=== PATIENT | female | born 2000 | race Caucasian/White ===

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

== ENCOUNTER 2021-01-14 21:13 | Emergency (ER) | payer OTHER ==
[~2021-01-14] VITALS: Ht 157.4 cm; Wt 77.1 kg
[2021-01-14] MEDS ORDERED: PREDNISONE20 M1 PO (22:51)
== END 2021-01-14 23:31 | disposition home or self-care (01) ==
LOC: ED 21:13
DX: O99.512 Diseases of the respiratory system complicating pregnancy, second trimester (principal); J45.901 Unspecified asthma with (acute) exacerbation; Z3A.16 16 weeks gestation of pregnancy

== ENCOUNTER 2021-01-20 21:38 | Emergency (ER) | payer OTHER | END 2021-01-21 01:03 | disposition home or self-care (01) | LOC: ED 21:38 | DX: O99.512 Diseases of the respiratory system complicating pregnancy, second trimester (principal); Z3A.17 17 weeks gestation of pregnancy ==

== ENCOUNTER 2021-01-23 00:36 | Emergency (ER) | payer OTHER ==
[~2021-01-23] VITALS: Ht 149.8 cm; Wt 64.9 kg
[2021-01-23 01:25] LABS: BASO # 0.1 10*3/uL (0.0-0.1); BASO % 0.3 % (0.0-1.0); EOS # 0.9 10*3/uL (0.0-0.4); EOS % 4.9 % (1.0-4.0); HEMATOCRIT 34.9 % (37.0-47.0); LYMPH # 2.6 10*3/uL (1.3-4.4); LYMPH % 14.9 % (27.0-41.0); MEAN CELL VOLUME 81.4 fl (81.0-99.0); MEAN CORPUSCULAR HGB 28.2 pg (27.0-31.0); MEAN CORPUSCULAR HGB CONC 34.7 g/dl (33.0-37.0); MEAN PLATELET VOLUME 10.9 fl (9.6-12.3); MONO # 1.1 10*3/uL (0.1-1.0); MONO % 6.3 % (3.0-9.0); NEUT # 12.6 10*3/uL (2.3-7.9); NEUT % 72.7 % (47.0-73.0); PLATELET COUNT AUTOMATED 263 10*3/uL (130-400); RED BLOOD COUNT 4.29 10*6/uL (4.10-5.10); RED CELL DISTRI WIDTH 13.2 % (0-14.5); WHITE BLOOD COUNT 17.3 10*3/uL (4.8-10.8)
[2021-01-23 01:41] LABS: ALBUMIN 2.7 gm/dl (3.1-4.5); ALKALINE PHOSPHATASE 59 U/L (45-117); BUN 5 mg/dl (7-24); CHLORIDE 109 mmol/L (98-107); CREATININE 0.54 mg/dL (0.55-1.02); POTASSIUM 3.6 mmol/L (3.5-5.1); SGOT/AST 14 IU/L (3-35); SGPT/ALT 23 U/L (12-78); SODIUM 140 mmol/L (136-145); TOTAL PROTEIN 6.9 gm/dL (6.4-8.2)
== END 2021-01-23 03:50 | disposition home or self-care (01) ==
LOC: ED 00:36
PROVIDERS: Emergency Medicine
DX: J45.901 Unspecified asthma with (acute) exacerbation (principal)

== ENCOUNTER 2021-01-25 05:04 | Emergency (ER) | payer OTHER ==
[~2021-01-25] VITALS: Ht 149.8 cm; Wt 66.7 kg
== END 2021-01-25 20:31 | disposition short-term general hospital (02) ==
LOC: ED 05:04
DX: O99.512 Diseases of the respiratory system complicating pregnancy, second trimester (principal); Z20.822 Contact with and (suspected) exposure to COVID-19; J45.901 Unspecified asthma with (acute) exacerbation; Z3A.17 17 weeks gestation of pregnancy

== ENCOUNTER 2021-02-12 22:18 | Emergency (ER) | payer OTHER ==
[~2021-02-12] VITALS: Ht 149.8 cm; Wt 63.5 kg
[2021-02-13 00:23] LABS: BILIRUBIN Negative (Negative); BLOOD Negative (Negative); CLARITY Cloudy (Clear); COLOR Yellow (Yellow); GLUCOSE Negative (Negative); KETONE Trace (Negative); LEUKO ESTERASE Negative (Negative); NITRITE Negative (Negative); PH 6.5 (4.5-8.0); SPECIFIC GRAVITY 1.025 (1.001-1.030)
[2021-02-13 00:51] LABS: BACTERIA 1+; RBC 16-20 rbc/hpf (0-2)
== END 2021-02-13 00:17 | disposition home or self-care (01) ==
LOC: ED 22:18
PROVIDERS: Internal Medicine
DX: O26.892 Other specified pregnancy related conditions, second trimester (principal); Z3A.20 20 weeks gestation of pregnancy

== ENCOUNTER 2021-02-28 19:45 | Emergency (ER) | payer OTHER ==
[~2021-02-28] VITALS: Ht 157.4 cm
[2021-02-28 20:22] LABS: BASO % 0.2 % (0.0-1.0); EOS # 0.1 10*3/uL (0.0-0.4); EOS % 0.5 % (1.0-4.0); HEMATOCRIT 40.3 % (37.0-47.0); LYMPH % 14.9 % (27.0-41.0); MEAN CORPUSCULAR HGB 28.1 pg (27.0-31.0); MEAN PLATELET VOLUME 10.5 fl (9.6-12.3); MONO # 1.4 10*3/uL (0.1-1.0); MONO % 10.7 % (3.0-9.0); NEUT # 9.5 10*3/uL (2.3-7.9); NEUT % 71.7 % (47.0-73.0); PLATELET COUNT AUTOMATED 241 10*3/uL (130-400); RED BLOOD COUNT 4.74 10*6/uL (4.10-5.10); RED CELL DISTRI WIDTH 13.6 % (0-14.5); WHITE BLOOD COUNT 13.2 10*3/uL (4.8-10.8)
[2021-02-28 20:38] LABS: ALBUMIN 3.1 gm/dl (3.1-4.5); ALKALINE PHOSPHATASE 73 U/L (45-117); BUN 10 mg/dl (7-24); CHLORIDE 104 mmol/L (98-107); CREATININE 0.64 mg/dL (0.55-1.02); LIPASE 71 U/L (73-393); POTASSIUM 3.6 mmol/L (3.5-5.1); SGOT/AST 21 IU/L (3-35); SGPT/ALT 28 U/L (12-78); SODIUM 137 mmol/L (136-145); TOTAL PROTEIN 7.5 gm/dL (6.4-8.2)
[2021-02-28 21:17] LABS: BILIRUBIN 1+ (Negative); BLOOD Negative (Negative); CLARITY Cloudy (Clear); COLOR Dark Yellow (Yellow); GLUCOSE Negative (Negative); KETONE 2+ (Negative); LEUKO ESTERASE Trace (Negative); NITRITE Negative (Negative); PH 5.5 (4.5-8.0); SPECIFIC GRAVITY >= 1.030 (1.001-1.030)
[2021-02-28 21:26] LABS: BACTERIA 2+; CALCIUM OXALATE CRYSTALS 1+; MUCOUS TRACE; RBC 0-2 rbc/hpf (0-2)
[2021-02-28] MEDS ORDERED: CEPHALEXIN500 M1 PO (21:55)
== END 2021-02-28 22:10 | disposition home or self-care (01) ==
LOC: ED 19:45
PROVIDERS: Physician Assistant
DX: O26.892 Other specified pregnancy related conditions, second trimester (principal); Z3A.22 22 weeks gestation of pregnancy

== ENCOUNTER 2021-07-09 22:01 | Emergency (ER) | payer OTHER ==
[~2021-07-09] VITALS: Wt 68.0 kg
[~2021-07-09 22:01] MED LIST changes: +CEPHALEXIN500 M1 PO
[2021-07-09] MEDS ORDERED: SYMB160 INH (22:42)
[2021-07-09] MEDS ORDERED: LORADAMED10 MG PO (22:42)
[2021-07-09 23:24] LABS: BASO # 0.1 10*3/uL (0.0-0.1); BASO % 0.8 % (0.0-1.0); EOS # 1.1 10*3/uL (0.0-0.4); EOS % 8.7 % (1.0-4.0); HEMATOCRIT 37.4 % (37.0-47.0); LYMPH # 2.1 10*3/uL (1.3-4.4); LYMPH % 16.8 % (27.0-41.0); MEAN CELL VOLUME 81.8 fl (81.0-99.0); MEAN CORPUSCULAR HGB 26.5 pg (27.0-31.0); MEAN CORPUSCULAR HGB CONC 32.4 g/dl (33.0-37.0); MEAN PLATELET VOLUME 10.4 fl (9.6-12.3); MONO # 0.8 10*3/uL (0.1-1.0); MONO % 6.5 % (3.0-9.0); NEUT # 8.3 10*3/uL (2.3-7.9); PLATELET COUNT AUTOMATED 367 10*3/uL (130-400); RED BLOOD COUNT 4.57 10*6/uL (4.10-5.10); RED CELL DISTRI WIDTH 14.2 % (0-14.5); WHITE BLOOD COUNT 12.4 10*3/uL (4.8-10.8)
[2021-07-09 23:35] LABS: ALKALINE PHOSPHATASE 113 U/L (45-117); BUN 11 mg/dl (7-24); CHLORIDE 113 mmol/L (98-107); CREATININE 0.79 mg/dL (0.55-1.02); SGOT/AST 11 IU/L (3-35); SGPT/ALT 27 U/L (12-78); SODIUM 142 mmol/L (136-145); TOTAL PROTEIN 7.4 gm/dL (6.4-8.2)
[2021-07-10] MEDS ORDERED: Ipratropium Brom3 ML INH (03:11)
== END 2021-07-10 03:16 | disposition home or self-care (01) ==
LOC: ED 22:01
PROVIDERS: Emergency Medicine
DX: J45.909 Unspecified asthma, uncomplicated (principal)

== ENCOUNTER 2021-07-21 11:34 | Inpatient (IN) | payer OTHER ==
[~2021-07-21] VITALS: Ht 149.8 cm; Wt 64.4 kg
[~2021-07-21 11:34] MED LIST changes: +LORADAMED10 MG PO; +SYMB160 INH
[2021-07-21 11:51] VITALS: BP 117/83
[2021-07-21 12:05] LABS: BASO # 0.1 10*3/uL (0.0-0.1); BASO % 0.7 % (0.0-1.0); EOS # 0.9 10*3/uL (0.0-0.4); EOS % 9.8 % (1.0-4.0); HEMATOCRIT 38.7 % (37.0-47.0); LYMPH # 1.3 10*3/uL (1.3-4.4); LYMPH % 14.4 % (27.0-41.0); MEAN CELL VOLUME 81.8 fl (81.0-99.0); MEAN CORPUSCULAR HGB CONC 31.8 g/dl (33.0-37.0); MEAN PLATELET VOLUME 10.1 fl (9.6-12.3); MONO # 0.7 10*3/uL (0.1-1.0); MONO % 7.4 % (3.0-9.0); NEUT # 6.1 10*3/uL (2.3-7.9); NEUT % 67.5 % (47.0-73.0); PLATELET COUNT AUTOMATED 301 10*3/uL (130-400); RED BLOOD COUNT 4.73 10*6/uL (4.10-5.10); RED CELL DISTRI WIDTH 13.8 % (0-14.5)
[2021-07-21 12:18] LABS: ACT PARTIAL THROMBO TIME 31.9 SECONDS (20.0-32.1)
[2021-07-21 12:20] LABS: BUN 7 mg/dl (7-24); CHLORIDE 113 mmol/L (98-107); CREATININE 0.72 mg/dL (0.55-1.02); POTASSIUM 3.7 mmol/L (3.5-5.1); SODIUM 142 mmol/L (136-145)
[2021-07-21 17:44] VITALS: BP 130/76
[2021-07-21 20:00] VITALS: BP 120/76
[2021-07-22] VITALS: BP 122/71
[2021-07-22 06:25] LABS: BASO # 0.1 10*3/uL (0.0-0.1); BASO % 0.6 % (0.0-1.0); EOS # 0.2 10*3/uL (0.0-0.4); EOS % 1.8 % (1.0-4.0); HEMATOCRIT 36.8 % (37.0-47.0); LYMPH # 2.4 10*3/uL (1.3-4.4); LYMPH % 22.7 % (27.0-41.0); MEAN CELL VOLUME 81.8 fl (81.0-99.0); MEAN CORPUSCULAR HGB 26.2 pg (27.0-31.0); MEAN CORPUSCULAR HGB CONC 32.1 g/dl (33.0-37.0); MEAN PLATELET VOLUME 10.6 fl (9.6-12.3); MONO # 1.3 10*3/uL (0.1-1.0); MONO % 12.1 % (3.0-9.0); NEUT # 6.5 10*3/uL (2.3-7.9); NEUT % 62.4 % (47.0-73.0); PLATELET COUNT AUTOMATED 306 10*3/uL (130-400); WHITE BLOOD COUNT 10.4 10*3/uL (4.8-10.8)
[2021-07-22 06:27] LABS: BUN 11 mg/dl (7-24); CHLORIDE 110 mmol/L (98-107); CREATININE 0.74 mg/dL (0.55-1.02); POTASSIUM 3.5 mmol/L (3.5-5.1); SGOT/AST 10 IU/L (3-35); SGPT/ALT 19 U/L (12-78); SODIUM 141 mmol/L (136-145); TOTAL PROTEIN 6.5 gm/dL (6.4-8.2)
[2021-07-22 06:28] LABS: ALKALINE PHOSPHATASE 89 U/L (45-117)
[2021-07-22 08:00] VITALS: BP 122/72
[2021-07-22 12:00] VITALS: BP 123/74
[2021-07-22 15:36] VITALS: BP 126/74
[2021-07-22 20:00] VITALS: BP 121/62
[2021-07-23] VITALS: BP 143/77
[2021-07-23 08:00] VITALS: BP 114/70
[2021-07-23 12:00] VITALS: BP 140/81
== END 2021-07-23 15:26 | disposition left against medical advice (07) | DRG 189 ==
LOC: ED 11:34 → 4E 15:39 → EDHOLD 15:39 → 4E 16:16
PROVIDERS: Emergency Medicine; Internal Medicine; ADMIT Internal Medicine; ATTEND Internal Medicine
DX: J96.01 Acute respiratory failure with hypoxia (principal); J45.901 Unspecified asthma with (acute) exacerbation; R65.10 Systemic inflammatory response syndrome (SIRS) of non-infectious origin without acute organ dysfunction; E44.0 Moderate protein-calorie malnutrition; Z53.29 Procedure and treatment not carried out because of patient's decision for other reasons; Z68.28 Body mass index [BMI] 28.0-28.9, adult; Z79.899 Other long term (current) drug therapy

== ENCOUNTER 2021-07-25 22:50 | Inpatient (IN) | payer OTHER ==
[~2021-07-25] VITALS: Ht 149.8 cm; Wt 65.4 kg
[2021-07-25 23:00] VITALS: BP 122/60
[2021-07-25 23:25] LABS: BASO # 0.1 10*3/uL (0.0-0.1); BASO % 0.7 % (0.0-1.0); EOS # 1.1 10*3/uL (0.0-0.4); EOS % 6.2 % (1.0-4.0); HEMATOCRIT 40.5 % (37.0-47.0); LYMPH % 16.7 % (27.0-41.0); MEAN CELL VOLUME 79.6 fl (81.0-99.0); MEAN CORPUSCULAR HGB 26.3 pg (27.0-31.0); MEAN CORPUSCULAR HGB CONC 33.1 g/dl (33.0-37.0); MEAN PLATELET VOLUME 10.4 fl (9.6-12.3); MONO # 1.2 10*3/uL (0.1-1.0); MONO % 6.8 % (3.0-9.0); NEUT # 12.4 10*3/uL (2.3-7.9); NEUT % 69.2 % (47.0-73.0); PLATELET COUNT AUTOMATED 374 10*3/uL (130-400); RED BLOOD COUNT 5.09 10*6/uL (4.10-5.10); RED CELL DISTRI WIDTH 13.5 % (0-14.5); WHITE BLOOD COUNT 17.9 10*3/uL (4.8-10.8)
[2021-07-25 23:41] LABS: ALKALINE PHOSPHATASE 105 U/L (45-117); BUN 18 mg/dl (7-24); CHLORIDE 106 mmol/L (98-107); CREATININE 0.94 mg/dL (0.55-1.02); POTASSIUM 4.3 mmol/L (3.5-5.1); SGOT/AST 20 IU/L (3-35); SGPT/ALT 25 U/L (12-78); SODIUM 138 mmol/L (136-145); TOTAL PROTEIN 7.5 gm/dL (6.4-8.2)
[2021-07-26 03:03] LABS: HEMATOCRIT 39.8 % (37.0-47.0); MEAN CELL VOLUME 80.6 fl (81.0-99.0); MEAN CORPUSCULAR HGB 25.7 pg (27.0-31.0); MEAN CORPUSCULAR HGB CONC 31.9 g/dl (33.0-37.0); MEAN PLATELET VOLUME 10.6 fl (9.6-12.3); PLATELET COUNT AUTOMATED 309 10*3/uL (130-400); RED BLOOD COUNT 4.94 10*6/uL (4.10-5.10); RED CELL DISTRI WIDTH 13.6 % (0-14.5)
[2021-07-26 03:05] LABS: MANUAL DIFF REFLEX YES
[2021-07-26 03:19] LABS: ALKALINE PHOSPHATASE 100 U/L (45-117); BUN 17 mg/dl (7-24); CHLORIDE 109 mmol/L (98-107); CREATININE 0.98 mg/dL (0.55-1.02); POTASSIUM 4.1 mmol/L (3.5-5.1); SGOT/AST 8 IU/L (3-35); SGPT/ALT 24 U/L (12-78); SODIUM 139 mmol/L (136-145); TOTAL PROTEIN 7.2 gm/dL (6.4-8.2)
[2021-07-26 03:20] LABS: FREE T4 0.89 ng/dl (0.76-1.46)
[2021-07-26 03:52] LABS: TOTAL CELLS COUNTED 100 #CELLS
[2021-07-26 03:53] LABS: PLATELET SUFFICIENCY NORMAL (NORMAL)
[2021-07-26 07:30] VITALS: BP 122/64
[2021-07-26 12:00] VITALS: BP 122/70
[2021-07-26 15:49] VITALS: BP 127/68
[2021-07-26 20:00] VITALS: BP 118/68
[2021-07-27] VITALS: BP 135/63
[2021-07-27 08:00] VITALS: BP 116/69
[2021-07-27 10:33] LABS: BASO % 0.1 % (0.0-1.0); EOS % 0.1 % (1.0-4.0); HEMATOCRIT 35.1 % (37.0-47.0); LYMPH # 2.4 10*3/uL (1.3-4.4); LYMPH % 9.9 % (27.0-41.0); MEAN CELL VOLUME 81.8 fl (81.0-99.0); MEAN CORPUSCULAR HGB 25.9 pg (27.0-31.0); MEAN CORPUSCULAR HGB CONC 31.6 g/dl (33.0-37.0); MEAN PLATELET VOLUME 10.7 fl (9.6-12.3); MONO # 1.3 10*3/uL (0.1-1.0); MONO % 5.5 % (3.0-9.0); NEUT # 19.9 10*3/uL (2.3-7.9); NEUT % 83.6 % (47.0-73.0); PLATELET COUNT AUTOMATED 321 10*3/uL (130-400); RED BLOOD COUNT 4.29 10*6/uL (4.10-5.10); RED CELL DISTRI WIDTH 13.8 % (0-14.5); WHITE BLOOD COUNT 23.8 10*3/uL (4.8-10.8)
[2021-07-27 10:44] LABS: BUN 16 mg/dl (7-24); CHLORIDE 112 mmol/L (98-107); CREATININE 0.84 mg/dL (0.55-1.02); SODIUM 141 mmol/L (136-145)
[2021-07-27] MEDS ORDERED: SYMB160 INH (11:35)
[2021-07-27] MEDS ORDERED: PREDNISONE10 MG PO (11:35)
== END 2021-07-27 15:07 | disposition home or self-care (01) | DRG 871 ==
LOC: ED 22:50 → EDHOLD 07-26 01:53 → 5E 07-26 01:53
PROVIDERS: Emergency Medicine; Family Medicine; Internal Medicine; ADMIT Internal Medicine; ATTEND Internal Medicine
DX: A41.9 Sepsis, unspecified organism (principal); J18.9 Pneumonia, unspecified organism; J96.01 Acute respiratory failure with hypoxia; J45.901 Unspecified asthma with (acute) exacerbation; J45.41 Moderate persistent asthma with (acute) exacerbation; R73.9 Hyperglycemia, unspecified; E87.8 Other disorders of electrolyte and fluid balance, not elsewhere classified; E83.41 Hypermagnesemia; D64.9 Anemia, unspecified; Z79.899 Other long term (current) drug therapy; Z68.29 Body mass index [BMI] 29.0-29.9, adult